=== PATIENT | female | born 1945 | race African-American/Black ===

== ENCOUNTER 2022-09-20 04:02 | Emergency (ER) | payer OTHER ==
[~2022-09-20] VITALS: Ht 167.6 cm; Wt 59.0 kg
[2022-09-20] MEDS ORDERED: FAMOTIDINE 20MG/2ML VIAL IV STA (05:08)
[2022-09-20] MEDS ORDERED: ONDANSETRON HCL 4MG/2ML INJ IV STA (05:08)
[2022-09-20] MEDS ORDERED: MORPHINE SULFATE 4 MG/ML CPJ (NOT FOR IM USE) IV STA (05:08)
[2022-09-20] MEDS ORDERED: FAMOTIDINE 20MG/2ML VIAL IV NR (05:45)
[2022-09-20 06:27] LABS: BASOPHILS % 0.9 % (0.0-2.0); EOSINOPHILS % 1.7 % (0.0-5.0); HEMATOCRIT. 31.9 % (36.0-48.0); HEMOGLOBIN. 10.2 g/dL (12.0-16.0); LYMPHOCYTES % 11.9 % (20.0-50.0); MEAN CORPUSCULAR VOLUME 99.7 fL (81.0-99.0); MEAN PLATELET VOLUME 8.1 fl (7.4-10.4); MONOCYTES % 12.9 % (2.0-8.0); NEUTROPHILS % 72.6 % (40.0-76.0); PLATELET 238 x1000/uL (130-400); RED CELL DISTRIBUTION WIDTH 17.9 % (11.6-14.6)
[2022-09-20 06:42] LABS: CHLORIDE 93 mEq/L (98-107)
[2022-09-20 14:18] VITALS: BP 152/74
== END 2022-09-20 15:20 | disposition short-term general hospital (02) ==
LOC: ER 04:02
DX: I12.0 Hypertensive chronic kidney disease with stage 5 chronic kidney disease or end stage renal disease (principal); N18.6 End stage renal disease; I10 Essential (primary) hypertension; Z20.822 Contact with and (suspected) exposure to COVID-19; Z88.5 Allergy status to narcotic agent; Z88.6 Allergy status to analgesic agent; Z88.8 Allergy status to other drugs, medicaments and biological substances
CPT/HCPCS: 36415; 71045; 76700; 80053; 83690; 84484; 85025; 87426; 93005; 96374; 96375; 99285; C9803; J2270; J2405; J3490

== ENCOUNTER 2022-10-23 18:17 | Emergency (ER) | payer OTHER ==
[~2022-10-23] VITALS: Ht 162.6 cm; Wt 60.0 kg
[2022-10-23] MEDS ORDERED: SODIUM CHLORIDE 0.9% 1,000 ML IV ONE (21:00)
[2022-10-23 21:25] LABS: CHLORIDE 92 mEq/L (98-107)
[2022-10-23 21:46] LABS: HEMATOCRIT. 28.1 % (36.0-48.0); HEMOGLOBIN. 8.7 g/dL (12.0-16.0); MEAN CORPUSCULAR HEMOGLOBIN 32.7 pg (28.0-32.0); MEAN CORPUSCULAR VOLUME 105.7 fL (81.0-99.0); MEAN PLATELET VOLUME 8.2 fl (7.4-10.4); PLATELET 215 x1000/uL (130-400); RED BLOOD CELL COUNT 2.66 mill/uL (4.2-5.4); RED CELL DISTRIBUTION WIDTH 19.8 % (11.6-14.6)
[2022-10-23 22:19] LABS: PLATELET ESTIMATE NORMAL
[2022-10-24] MEDS ORDERED: GLYCERIN ADULT SUPPOSITORY PR ONE (00:15)
[2022-10-24] MEDS ORDERED: MORPHINE SULFATE 4 MG/ML CPJ (NOT FOR IM USE) IV ONE (01:45)
[2022-10-24 04:00] VITALS: BP 148/82
[2022-10-24] MEDS ORDERED: SENN-257 MT (04:46)
== END 2022-10-24 05:49 | disposition home or self-care (01) ==
LOC: ER 18:17 → CANBEDREQ 10-25 18:23
DX: R10.84 Generalized abdominal pain (principal); C80.1 Malignant (primary) neoplasm, unspecified; C78.7 Secondary malignant neoplasm of liver and intrahepatic bile duct; I12.0 Hypertensive chronic kidney disease with stage 5 chronic kidney disease or end stage renal disease; N18.6 End stage renal disease; Z99.2 Dependence on renal dialysis; Z88.8 Allergy status to other drugs, medicaments and biological substances; Z88.5 Allergy status to narcotic agent
CPT/HCPCS: 36415; 74176; 80053; 83690; 85025; 96374; 99284; J2270; J7030

== ENCOUNTER 2022-11-25 16:37 | Emergency (ER) | payer OTHER ==
[~2022-11-25] VITALS: Ht 162.6 cm; Wt 59.0 kg
[~2022-11-25 16:37] MED LIST: SENN-257 MT
[2022-11-25 17:48] LABS: HEMATOCRIT. 36.6 % (36.0-48.0); HEMOGLOBIN. 11.6 g/dL (12.0-16.0); MEAN CORPUSCULAR HEMOGLOBIN 29.9 pg (28.0-32.0); MEAN CORPUSCULAR VOLUME 94.3 fL (81.0-99.0); MEAN PLATELET VOLUME 8.2 fl (7.4-10.4); PLATELET 249 x1000/uL (130-400); RED BLOOD CELL COUNT 3.89 mill/uL (4.2-5.4); RED CELL DISTRIBUTION WIDTH 21.6 % (11.6-14.6)
[2022-11-25 18:03] LABS: CHLORIDE 97 mEq/L (98-107)
[2022-11-25 18:14] LABS: ETHANOL BLOOD < 10 mg/dL
[2022-11-25 18:23] LABS: PLATELET ESTIMATE NORMAL
[2022-11-25] MEDS ORDERED: SODIUM CHLORIDE 0.9% 250 ML IV ONE (19:30)
[2022-11-25] MEDS: PIPERACILLIN/TAZOBACTAM 3.375GM/50ML PREMIX IV NR ×2 (20:20→21:03)
[2022-11-26 04:00] VITALS: BP 123/70
== END 2022-11-26 04:34 | disposition short-term general hospital (02) ==
LOC: ER 16:37 → CANBEDREQ 11-27 01:51
DX: R55 Syncope and collapse (principal); R41.82 Altered mental status, unspecified; D72.829 Elevated white blood cell count, unspecified; R77.8 Other specified abnormalities of plasma proteins; D18.1 Lymphangioma, any site; I12.0 Hypertensive chronic kidney disease with stage 5 chronic kidney disease or end stage renal disease; E11.22 Type 2 diabetes mellitus with diabetic chronic kidney disease; N18.6 End stage renal disease; Z88.6 Allergy status to analgesic agent; Z88.8 Allergy status to other drugs, medicaments and biological substances; Z99.2 Dependence on renal dialysis; Z98.890 Other specified postprocedural states; Z20.822 Contact with and (suspected) exposure to COVID-19
CPT/HCPCS: 36415; 70450; 71045; 80053; 80320; 82962; 83605; 83690; 83880; 84484; 85025; 87040; 87426; 93005; 96365; 99291; C9803; J2543; G0480